=== PATIENT | female | born 1950 | race Caucasian/White ===

== ENCOUNTER 2019-11-05 16:52 | Outpatient (CLI) | payer MEDICARE, SELFPAY ==
[2019-11-06 02:52] LABS: Alanine Aminotransferase 16 U/L (0-33); Albumin Level 4.2 g/dL (3.5-5.2); Alkaline Phosphatase 35 IU/L (35-105); Anion Gap 15.4 (5-19); Aspartate Amino Transferase 27 U/L (0-32); Blood Urea Nitrogen 12 mg/dL (8-23); Calcium 9.3 mg/dL (8.5-10.5); Carbon Dioxide 26 mmol/L (22-29); Chloride 96 mmol/L (98-107); Globulin 2.4 g/dL (1.3-4.6); Glomerular Filtration Rate 99.1 mL/min (90-130); Glucose 76 mg/dL (65-115); Osmolality Calculated 271 mOsm/kg (285-295); Potassium 4.4 mmol/L (3.5-5.1); Sodium 133 mmol/L (136-145); Thyroid Stimulating Hormone 1.47 uIU/mL (0.27-4.20); Total Bilirubin 0.5 mg/dL (0.15-1.2); Total Protein 6.6 g/dL (6.6-8.7)
== END 2019-11-05 16:53 | disposition home or self-care (01) ==
LOC: LAB 16:58
PROVIDERS: Family Provider Nurse Practitioner Family; PCP Nurse Practitioner Family; Visit Provider Nurse Practitioner Family
DX: R63.4 Abnormal weight loss (principal)
CPT/HCPCS: 80053; 84443

== ENCOUNTER 2019-11-20 16:20 | Outpatient (CLI) | payer MEDICARE, SELFPAY | END 2019-11-20 16:21 | disposition home or self-care (01) | LOC: LAB 16:22 | PROVIDERS: PCP Nurse Practitioner Family; Visit Provider Nurse Practitioner Family | DX: A04.9 Bacterial intestinal infection, unspecified (principal) | CPT/HCPCS: 82274; 83630; 87506 ==

== ENCOUNTER 2019-12-02 14:25 | Outpatient (CLI) | payer MEDICARE, SELFPAY ==
[2019-12-02 16:11] LABS: Eosinophils # 0.2 10^3/uL (0.0-0.8); Eosinophils % 3.9 %; Hematocrit 42.8 % (37.0-47.0); Hemoglobin 13.4 g/dL (11.5-15.3); Lymphocytes # 1.3 10^3/uL (0.8-4.8); Lymphocytes % 31.6 %; Mean Corpuscular HGB Conc 31.3 g/dL (30.0-36.0); Mean Corpuscular Hemoglobin 29.7 pg (28.0-34.0); Mean Corpuscular Volume 94.9 fL (81-99); Monocytes # 0.4 10^3/uL (0.2-0.9); Monocytes % 10.3 %; Neutrophils # 2.16 10^3/uL (1.8-7.7); Nucleated Red Blood Cells % 0 %; Platelet Count 251 10^3/cmm (130-400); Red Blood Count 4.51 10^6/uL (4.1-5.3); Red Cell Distribution Width 13.3 % (12.1-15.1); White Blood Count 4.1 10^3/uL (4.0-10.0)
== END 2019-12-02 14:26 | disposition home or self-care (01) ==
LOC: LAB 14:28
PROVIDERS: PCP Nurse Practitioner Family; Visit Provider Nurse Practitioner Family
DX: A04.9 Bacterial intestinal infection, unspecified (principal)
CPT/HCPCS: 85025